=== PATIENT | female | born 2005 | race Caucasian/White ===

== ENCOUNTER 2024-06-13 10:00 | Emergency (ER) | payer SELFPAY | END 2024-06-13 12:37 | disposition home or self-care (01) | LOC: CSHERS 10:00 | DX: O26.891 Other specified pregnancy related conditions, first trimester (principal); N93.9 Abnormal uterine and vaginal bleeding, unspecified; Z3A.01 Less than 8 weeks gestation of pregnancy | CPT/HCPCS: 76856 ==